=== PATIENT | male | born 1950 | race Caucasian/White ===

== ENCOUNTER 2020-08-13 12:51 | Inpatient (IN) ==
[2020-08-13 13:59] LABS: Basophils # 0.1 K/mcL (0.0-0.2); Basophils % 0.8 %; Eosinophils # 0.1 K/mcL (0.0-0.6); Eosinophils % 1.3 %; Immature Granulocytes % 0.5 % (0-4); Immature Platelets 7.7 % (1.1-6.1); Lymphocytes % 16.8 %; Mean Corpuscular HGB Conc 31.6 g/dL (31.6-35.5); Mean Corpuscular Hemoglobin 33.1 pg (28.0-33.3); Mean Corpuscular Volume 104.8 fL (83.0-100.0); Mean Platelet Volume 11.2 fL (9.4-12.4); Monocytes # 0.7 K/mcL (0.0-1.3); Monocytes % 11.1 %; Neutrophils # 4.2 K/mcL (1.6-8.9); Platelet Count 142 K/mcL (140-400); Red Blood Count 5.44 M/mcL (4.19-5.50); Red Cell Distribution Width 16.2 % (11.5-14.5); Segmented Neutrophils % 69.5 %
[2020-08-13] MEDS ORDERED: Isovue-370 500 ML BOTTLE IVP ONE (14:11)
[2020-08-13 14:27] LABS: BUN/Creatinine Ratio 16 (6-26); Blood Urea Nitrogen 12 mg/dL (8-23); Calcium 9.8 mg/dL (8.6-10.3); Carbon Dioxide 35 mEq/L (23-29); Chloride 98 mEq/L (98-107); Glucose 107 mg/dL (70-105); Osmolality,Calculated 288 (280-300); Potassium 3.5 mEq/L (3.5-5.1); Sodium 139 mEq/L (136-145); Troponin I < 0.03 ng/mL (< 0.04); eGFR For African Americans > 60 (> 60); eGFR For Non-African Americans > 60 (> 60)
[2020-08-13] MEDS ORDERED: Vancomycin 2,000 MG/520 ML IV.SOLN IVPB ONE (16:57)
[2020-08-13] MEDS ORDERED: Ondansetron ODT 4 MG TAB.RAPDIS SL PRN (17:16)
[2020-08-13] MEDS ORDERED: Acetaminophen 325 MG TABLET PO PRN (17:16)
[2020-08-13] MEDS ORDERED: Perflutren Lipid Microsphere 1.3 ML in 0.9 % Sodium Chloride 8.7 ML IVP PRN (17:20)
[2020-08-13] MEDS ORDERED: methylPREDNISolone 125 MG/2 ML VIAL IVP ONE (17:22)
[2020-08-13 18:37] LABS: VBG HCO3 39 mEq/L (21-27); VBG PCO2 80 mmHg (41-51); VBG PH 7.29 pH Units (7.32-7.42); VBG PO2 55 mmHg (25-50)
[2020-08-13 19:14] LABS: Hepatitis B Surface Antigen Nonreactive (Nonreactive)
[2020-08-13 19:36] LABS: Albumin 3.4 g/dL (3.5-5.7); Albumin/Globulin Ratio 0.7 (1.1-2.2); Bilirubin,Direct 0.3 mg/dL (0.0-0.2); Bilirubin,Indirect 1.2 mg/dL (0.0-1.0); Bilirubin,Total 1.5 mg/dL (0.3-1.0); Globulin 5.2 g/dL (2.4-3.5); Total Protein 8.6 g/dL (6.4-8.9)
[2020-08-13 19:42] LABS: Hepatitis B Core IgM Nonreactive (Nonreactive)
[2020-08-13 19:43] LABS: Hepatitis C Virus Antibody Nonreactive (Nonreactive)
[2020-08-13 19:44] LABS: Hepatitis A Antibody IgM Nonreactive (Nonreactive)
[2020-08-13 20:08] LABS: INR 1.4; Prothrombin Time 15.5 Seconds (9.4-12.1)
[2020-08-13] MEDS: Ipratropium/Albuterol Neb 3 ML IH SCH ×2 (20:14→23:22)
[2020-08-13] MEDS: Furosemide 40 MG/4 ML VIAL IVP SCH (20:18)
[2020-08-13] MEDS: Azithromycin 500 MG in 0.9 % Sodium Chloride 250 ML IVPB SCH (20:18)
[2020-08-14 03:09] LABS: Hematocrit 53.1 % (37.5-50.1); Mean Corpuscular HGB Conc 30.7 g/dL (31.6-35.5); Mean Corpuscular Hemoglobin 32.5 pg (28.0-33.3); Mean Platelet Volume 11.6 fL (9.4-12.4)
[2020-08-14 03:11] LABS: Hemoglobin 16.3 g/dL (12.9-16.9); Immature Platelets 7.5 % (1.1-6.1); Red Blood Count 5.01 M/mcL (4.19-5.50); White Blood Count 7.1 K/mcL (4.3-11.1)
[2020-08-14 03:17] LABS: BUN/Creatinine Ratio 14 (6-26); Blood Urea Nitrogen 10 mg/dL (8-23); Calcium 9.1 mg/dL (8.6-10.3); Carbon Dioxide 39 mEq/L (23-29); Chloride 98 mEq/L (98-107); Glucose 109 mg/dL (70-105); Osmolality,Calculated 292 (280-300); Potassium 3.3 mEq/L (3.5-5.1); Sodium 141 mEq/L (136-145); eGFR For African Americans > 60 (> 60); eGFR For Non-African Americans > 60 (> 60)
[2020-08-14] MEDS: Ipratropium/Albuterol Neb 3 ML IH SCH ×7 (03:51→23:47)
[2020-08-14] MEDS ORDERED: *HR* Enoxaparin 40 MG/0.4 ML SYRINGE SQ SCH (06:00)
[2020-08-14] MEDS: Furosemide 40 MG/4 ML VIAL IVP SCH ×2 (08:43→21:13)
[2020-08-14] MEDS: Metoprolol XL (24 HR) Succ 50 MG TAB.ER.24H PO SCH (09:09)
[2020-08-14] MEDS: lisinopriL 20 MG TABLET PO SCH (09:09)
[2020-08-14] MEDS: hydroCHLOROthiazide 25 MG TABLET PO SCH (09:11)
[2020-08-14 09:55] LABS: VBG HCO3 39 mEq/L (21-27); VBG PCO2 69 mmHg (41-51); VBG PH 7.36 pH Units (7.32-7.42); VBG PO2 96 mmHg (25-50)
[2020-08-14] MEDS: predniSONE 20 MG TABLET PO SCH (10:18)
[2020-08-14] MEDS: DilTIAZem CD (24hr) 120 MG CAP.ER.24H PO SCH (15:05)
[2020-08-14] MEDS: DilTIAZem 50 MG/50 ML IV.SOLN IVC SCH ×3 (16:25→23:38)
[2020-08-14] MEDS: Azithromycin 500 MG in 0.9 % Sodium Chloride 250 ML IVPB SCH (16:34)
[2020-08-14] MEDS: Fluticasone Propionate Nasal 50 MCG/SPRAY BOTTLE NS SCH (21:12)
[2020-08-14] MEDS ORDERED: Melatonin 3 MG TABLET PO PRN (23:28)
[2020-08-15] MEDS ORDERED: Albumin 25% 25gram/100mL 25 GM/100 ML IV.SOLN IVPB ONE (00:16)
[2020-08-15] MEDS: *HR* Metoprolol 5 MG/5 ML VIAL IVP PRN ×2 (01:02→11:06)
[2020-08-15] MEDS ORDERED: *HR* Metoprolol 5 MG/5 ML VIAL IVP ONE (02:16)
[2020-08-15 03:22] LABS: Basophils % 0.1 %; Eosinophils % 0.1 %; Immature Granulocytes % 0.4 % (0-4)
[2020-08-15 03:24] LABS: Hemoglobin 16.1 g/dL (12.9-16.9); Immature Platelets 7.9 % (1.1-6.1); Lymphocytes # 0.8 K/mcL (0.6-4.6); Mean Corpuscular HGB Conc 30.4 g/dL (31.6-35.5); Mean Corpuscular Volume 101.9 fL (83.0-100.0); Mean Platelet Volume 11.5 fL (9.4-12.4); Monocytes # 0.9 K/mcL (0.0-1.3); Monocytes % 12.1 %; Neutrophils # 5.6 K/mcL (1.6-8.9); Platelet Count 125 K/mcL (140-400); Red Cell Distribution Width 15.9 % (11.5-14.5); Segmented Neutrophils % 76.3 %; White Blood Count 7.3 K/mcL (4.3-11.1)
[2020-08-15] MEDS: DilTIAZem 50 MG/50 ML IV.SOLN IVC SCH ×3 (03:26→16:54)
[2020-08-15 03:35] LABS: VBG HCO3 43 mEq/L (21-27); VBG PCO2 76 mmHg (41-51); VBG PH 7.36 pH Units (7.32-7.42); VBG PO2 123 mmHg (25-50)
[2020-08-15 03:40] LABS: BUN/Creatinine Ratio 19 (6-26); Blood Urea Nitrogen 12 mg/dL (8-23); Calcium 9.2 mg/dL (8.6-10.3); Carbon Dioxide 42 mEq/L (23-29); Chloride 93 mEq/L (98-107); Glucose 124 mg/dL (70-105); Osmolality,Calculated 289 (280-300); Potassium 3.3 mEq/L (3.5-5.1); Sodium 139 mEq/L (136-145); eGFR For African Americans > 60 (> 60); eGFR For Non-African Americans > 60 (> 60)
[2020-08-15] MEDS: Ipratropium/Albuterol Neb 3 ML IH SCH ×6 (04:07→23:17)
[2020-08-15] MEDS: Metoprolol XL (24 HR) Succ 50 MG TAB.ER.24H PO SCH (07:14)
[2020-08-15] MEDS: predniSONE 20 MG TABLET PO SCH (07:15)
[2020-08-15] MEDS: DilTIAZem CD (24hr) 120 MG CAP.ER.24H PO SCH (07:15)
[2020-08-15] MEDS: lisinopriL 20 MG TABLET PO SCH (07:15)
[2020-08-15] MEDS: Fluticasone Propionate Nasal 50 MCG/SPRAY BOTTLE NS SCH (07:19)
[2020-08-15] MEDS: hydroCHLOROthiazide 25 MG TABLET PO SCH (07:30)
[2020-08-15] MEDS: Furosemide 40 MG/4 ML VIAL IVP SCH ×2 (07:44→22:18)
[2020-08-15] MEDS: Vancomycin 2,000 MG/520 ML IV.SOLN IVPB SCH (10:35)
[2020-08-15] MEDS ORDERED: Amiodarone Premix 150 MG/100 ML BAG IVPB ONE (17:05)
[2020-08-15] MEDS ORDERED: Amiodarone Premix 360 MG/200 ML BAG IVC ONE (17:05)
[2020-08-15] MEDS ORDERED: Amiodarone Premix 360 MG/200 ML BAG IVC SCH (17:15)
[2020-08-15] MEDS: *HR* Rivaroxaban 10 MG TABLET PO SCH (18:01)
[2020-08-15] MEDS: Azithromycin 500 MG in 0.9 % Sodium Chloride 250 ML IVPB SCH (18:01)
[2020-08-15 22:54] LABS: ABG Base Excess 13 mEq/L (-2 to 3); ABG HCO3 44 mEq/L (21-27); ABG Oxygen Saturation 94 % (95-98); ABG PCO2 79 mmHg (35-45); ABG PH 7.36 pH Units (7.32-7.45); ABG PO2 80 mmHg (85-104); ABG TCO2 47 mEq/L (20-26)
[2020-08-16] MEDS: Vancomycin 2,000 MG/520 ML IV.SOLN IVPB SCH ×2 (00:16→09:48)
[2020-08-16 03:14] LABS: Basophils % 0.2 %; Hematocrit 53.8 % (37.5-50.1); Hemoglobin 16.3 g/dL (12.9-16.9); Immature Granulocytes % 0.5 % (0-4); Immature Platelets 10.4 % (1.1-6.1); Lymphocytes # 1.1 K/mcL (0.6-4.6); Lymphocytes % 11.1 %; Mean Corpuscular HGB Conc 30.3 g/dL (31.6-35.5); Mean Corpuscular Hemoglobin 30.8 pg (28.0-33.3); Mean Corpuscular Volume 101.7 fL (83.0-100.0); Mean Platelet Volume 11.5 fL (9.4-12.4); Monocytes # 1.2 K/mcL (0.0-1.3); Monocytes % 12.6 %; Neutrophils # 7.2 K/mcL (1.6-8.9); Platelet Count 127 K/mcL (140-400); Red Blood Count 5.29 M/mcL (4.19-5.50); Red Cell Distribution Width 15.7 % (11.5-14.5); Segmented Neutrophils % 75.6 %; White Blood Count 9.6 K/mcL (4.3-11.1)
[2020-08-16 03:28] LABS: BUN/Creatinine Ratio 21 (6-26); Blood Urea Nitrogen 15 mg/dL (8-23); Calcium 9.3 mg/dL (8.6-10.3); Carbon Dioxide 40 mEq/L (23-29); Chloride 93 mEq/L (98-107); Glucose 109 mg/dL (70-105); Magnesium 1.7 mg/dL (1.6-2.6); Osmolality,Calculated 285 (280-300); Potassium 3.7 mEq/L (3.5-5.1); Sodium 137 mEq/L (136-145); eGFR For African Americans > 60 (> 60); eGFR For Non-African Americans > 60 (> 60)
[2020-08-16] MEDS: Ipratropium/Albuterol Neb 3 ML IH SCH ×5 (04:16→19:49)
[2020-08-16] MEDS: Metoprolol XL (24 HR) Succ 50 MG TAB.ER.24H PO SCH (07:26)
[2020-08-16] MEDS: Furosemide 40 MG/4 ML VIAL IVP SCH ×2 (07:26→19:30)
[2020-08-16] MEDS: Fluticasone Propionate Nasal 50 MCG/SPRAY BOTTLE NS SCH (07:27)
[2020-08-16] MEDS: predniSONE 20 MG TABLET PO SCH (07:27)
[2020-08-16] MEDS ORDERED: DilTIAZem CD (24hr) 180 MG CAP.ER.24H PO SCH (09:00)
[2020-08-16] MEDS: Doxycycline 100 MG CAPSULE PO SCH ×2 (12:45→19:30)
[2020-08-16] MEDS: *HR* Rivaroxaban 10 MG TABLET PO SCH (16:07)
[2020-08-17] MEDS: Ipratropium/Albuterol Neb 3 ML IH SCH ×7 (00:06→23:46)
[2020-08-17 06:14] LABS: Basophils % 0.3 %; Eosinophils % 0.3 %; Hematocrit 54.3 % (37.5-50.1); Hemoglobin 17.2 g/dL (12.9-16.9); Immature Granulocytes % 0.3 % (0-4); Lymphocytes # 1.3 K/mcL (0.6-4.6); Lymphocytes % 18.7 %; Mean Corpuscular HGB Conc 31.7 g/dL (31.6-35.5); Mean Corpuscular Hemoglobin 32.4 pg (28.0-33.3); Mean Corpuscular Volume 102.3 fL (83.0-100.0); Mean Platelet Volume 11.4 fL (9.4-12.4); Monocytes # 0.8 K/mcL (0.0-1.3); Monocytes % 11.9 %; Neutrophils # 4.8 K/mcL (1.6-8.9); Platelet Count 128 K/mcL (140-400); Red Blood Count 5.31 M/mcL (4.19-5.50); Red Cell Distribution Width 15.6 % (11.5-14.5); Segmented Neutrophils % 68.5 %
[2020-08-17 06:20] LABS: VBG HCO3 40 mEq/L (21-27); VBG PCO2 71 mmHg (41-51); VBG PH 7.36 pH Units (7.32-7.42); VBG PO2 167 mmHg (25-50)
[2020-08-17 07:00] LABS: BUN/Creatinine Ratio 28 (6-26); Blood Urea Nitrogen 19 mg/dL (8-23); Calcium 9.3 mg/dL (8.6-10.3); Carbon Dioxide 40 mEq/L (23-29); Chloride 93 mEq/L (98-107); Glucose 90 mg/dL (70-105); Osmolality,Calculated 286 (280-300); Potassium 3.4 mEq/L (3.5-5.1); Sodium 137 mEq/L (136-145); eGFR For African Americans > 60 (> 60); eGFR For Non-African Americans > 60 (> 60)
[2020-08-17] MEDS: Doxycycline 100 MG CAPSULE PO SCH ×2 (09:35→19:13)
[2020-08-17] MEDS: Fluticasone Propionate Nasal 50 MCG/SPRAY BOTTLE NS SCH (09:36)
[2020-08-17] MEDS: Furosemide 40 MG/4 ML VIAL IVP SCH ×2 (09:37→19:12)
[2020-08-17] MEDS: Metoprolol XL (24 HR) Succ 50 MG TAB.ER.24H PO SCH (09:40)
[2020-08-17] MEDS: Sennosides/Docusate Sodium TABLET PO SCH (09:40)
[2020-08-17] MEDS: predniSONE 20 MG TABLET PO SCH (09:41)
[2020-08-17] MEDS: *HR* Rivaroxaban 10 MG TABLET PO SCH (16:49)
[2020-08-18 03:47] LABS: Red Cell Distribution Width 15.5 % (11.5-14.5)
[2020-08-18 03:49] LABS: Basophils % 0.3 %; Hematocrit 55.3 % (37.5-50.1); Hemoglobin 16.9 g/dL (12.9-16.9); Immature Granulocytes % 0.4 % (0-4); Immature Platelets 9.5 % (1.1-6.1); Lymphocytes % 14.7 %; Mean Corpuscular HGB Conc 30.6 g/dL (31.6-35.5); Mean Corpuscular Hemoglobin 31.1 pg (28.0-33.3); Mean Corpuscular Volume 101.7 fL (83.0-100.0); Mean Platelet Volume 11.7 fL (9.4-12.4); Monocytes # 0.9 K/mcL (0.0-1.3); Monocytes % 12.8 %; Neutrophils # 4.8 K/mcL (1.6-8.9); Platelet Count 125 K/mcL (140-400); Red Blood Count 5.44 M/mcL (4.19-5.50); Segmented Neutrophils % 71.8 %; White Blood Count 6.7 K/mcL (4.3-11.1)
[2020-08-18 03:51] LABS: VBG HCO3 40 mEq/L (21-27); VBG PCO2 48 mmHg (41-51); VBG PH 7.53 pH Units (7.32-7.42); VBG PO2 195 mmHg (25-50)
[2020-08-18] MEDS: Ipratropium/Albuterol Neb 3 ML IH SCH ×6 (03:58→23:40)
[2020-08-18 04:09] LABS: BUN/Creatinine Ratio 30 (6-26); Blood Urea Nitrogen 23 mg/dL (8-23); Calcium 9.5 mg/dL (8.6-10.3); Carbon Dioxide 41 mEq/L (23-29); Chloride 94 mEq/L (98-107); Glucose 92 mg/dL (70-105); Osmolality,Calculated 293 (280-300); Potassium 3.9 mEq/L (3.5-5.1); Sodium 140 mEq/L (136-145); eGFR For African Americans > 60 (> 60); eGFR For Non-African Americans > 60 (> 60)
[2020-08-18] MEDS: predniSONE 20 MG TABLET PO SCH (07:35)
[2020-08-18] MEDS: Metoprolol XL (24 HR) Succ 50 MG TAB.ER.24H PO SCH (07:36)
[2020-08-18] MEDS: Sennosides/Docusate Sodium TABLET PO SCH (07:36)
[2020-08-18] MEDS: Doxycycline 100 MG CAPSULE PO SCH ×2 (07:36→21:17)
[2020-08-18] MEDS: lisinopriL 20 MG TABLET PO SCH (07:36)
[2020-08-18] MEDS: hydroCHLOROthiazide 25 MG TABLET PO SCH (07:36)
[2020-08-18] MEDS: Furosemide 40 MG/4 ML VIAL IVP SCH (07:36)
[2020-08-18] MEDS: Fluticasone Propionate Nasal 50 MCG/SPRAY BOTTLE NS SCH (07:37)
[2020-08-18] MEDS: *HR* Rivaroxaban 10 MG TABLET PO SCH (16:32)
[2020-08-19] MEDS: Ipratropium/Albuterol Neb 3 ML IH SCH ×6 (03:38→23:06)
[2020-08-19 07:03] LABS: Basophils % 0.3 %; Eosinophils % 0.6 %; Hemoglobin 17.6 g/dL (12.9-16.9); Immature Granulocytes % 0.3 % (0-4); Lymphocytes # 1.4 K/mcL (0.6-4.6); Lymphocytes % 21.7 %; Mean Corpuscular HGB Conc 31.6 g/dL (31.6-35.5); Mean Corpuscular Hemoglobin 32.1 pg (28.0-33.3); Mean Corpuscular Volume 101.5 fL (83.0-100.0); Mean Platelet Volume 12.1 fL (9.4-12.4); Monocytes # 0.9 K/mcL (0.0-1.3); Monocytes % 13.5 %; Platelet Count 124 K/mcL (140-400); Red Blood Count 5.49 M/mcL (4.19-5.50); Red Cell Distribution Width 15.3 % (11.5-14.5); Segmented Neutrophils % 63.6 %; White Blood Count 6.4 K/mcL (4.3-11.1)
[2020-08-19 07:04] LABS: Hematocrit 55.7 % (37.5-50.1)
[2020-08-19 07:16] LABS: VBG HCO3 41 mEq/L (21-27); VBG PCO2 68 mmHg (41-51); VBG PH 7.39 pH Units (7.32-7.42); VBG PO2 185 mmHg (25-50)
[2020-08-19 07:22] LABS: BUN/Creatinine Ratio 36 (6-26); Blood Urea Nitrogen 27 mg/dL (8-23); Calcium 9.8 mg/dL (8.6-10.3); Carbon Dioxide 41 mEq/L (23-29); Chloride 92 mEq/L (98-107); Glucose 84 mg/dL (70-105); Osmolality,Calculated 290 (280-300); Potassium 3.5 mEq/L (3.5-5.1); Sodium 138 mEq/L (136-145); eGFR For African Americans > 60 (> 60); eGFR For Non-African Americans > 60 (> 60)
[2020-08-19] MEDS: hydroCHLOROthiazide 25 MG TABLET PO SCH (08:44)
[2020-08-19] MEDS: predniSONE 20 MG TABLET PO SCH (08:44)
[2020-08-19] MEDS: Metoprolol XL (24 HR) Succ 50 MG TAB.ER.24H PO SCH (08:44)
[2020-08-19] MEDS: Doxycycline 100 MG CAPSULE PO SCH ×2 (08:44→21:30)
[2020-08-19] MEDS: lisinopriL 20 MG TABLET PO SCH (08:44)
[2020-08-19] MEDS: Sennosides/Docusate Sodium TABLET PO SCH (08:44)
[2020-08-19] MEDS: Fluticasone Propionate Nasal 50 MCG/SPRAY BOTTLE NS SCH (08:45)
[2020-08-19 16:17] LABS: INR 1.8; Prothrombin Time 20.9 Seconds (9.4-12.1)
[2020-08-19] MEDS: Furosemide 40 MG/4 ML VIAL IVP SCH (16:35)
[2020-08-19] MEDS: *HR* Rivaroxaban 10 MG TABLET PO SCH (16:44)
[2020-08-19 22:53] LABS: Magnesium 1.9 mg/dL (1.6-2.6); Potassium 3.4 mEq/L (3.5-5.1)
[2020-08-20] MEDS: Ipratropium/Albuterol Neb 3 ML IH SCH ×5 (03:34→20:17)
[2020-08-20 06:58] LABS: Basophils % 0.3 %; Eosinophils % 0.5 %; Hemoglobin 17.9 g/dL (12.9-16.9); Immature Granulocytes % 0.4 % (0-4); Lymphocytes # 1.6 K/mcL (0.6-4.6); Lymphocytes % 20.8 %; Mean Corpuscular HGB Conc 31.7 g/dL (31.6-35.5); Mean Corpuscular Hemoglobin 31.3 pg (28.0-33.3); Mean Corpuscular Volume 98.8 fL (83.0-100.0); Mean Platelet Volume 12.3 fL (9.4-12.4); Monocytes # 0.9 K/mcL (0.0-1.3); Monocytes % 12.1 %; Neutrophils # 5.1 K/mcL (1.6-8.9); Platelet Count 134 K/mcL (140-400); Red Blood Count 5.72 M/mcL (4.19-5.50); Red Cell Distribution Width 15.2 % (11.5-14.5); Segmented Neutrophils % 65.9 %; White Blood Count 7.8 K/mcL (4.3-11.1)
[2020-08-20 06:59] LABS: Hematocrit 56.5 % (37.5-50.1)
[2020-08-20] MEDS ORDERED: predniSONE 20 MG TABLET PO SCH (09:00)
[2020-08-20 09:01] LABS: BUN/Creatinine Ratio 35 (6-26); Blood Urea Nitrogen 29 mg/dL (8-23); Calcium 10.1 mg/dL (8.6-10.3); Carbon Dioxide 41 mEq/L (23-29); Chloride 91 mEq/L (98-107); Glucose 86 mg/dL (70-105); Osmolality,Calculated 285 (280-300); Potassium 3.7 mEq/L (3.5-5.1); Sodium 135 mEq/L (136-145); eGFR For African Americans > 60 (> 60); eGFR For Non-African Americans > 60 (> 60)
[2020-08-20] MEDS: Sennosides/Docusate Sodium TABLET PO SCH (10:06)
[2020-08-20] MEDS: hydroCHLOROthiazide 25 MG TABLET PO SCH (10:06)
[2020-08-20] MEDS: Doxycycline 100 MG CAPSULE PO SCH (10:07)
[2020-08-20] MEDS: Metoprolol XL (24 HR) Succ 50 MG TAB.ER.24H PO SCH (10:07)
[2020-08-20] MEDS: lisinopriL 20 MG TABLET PO SCH (10:07)
[2020-08-20] MEDS: predniSONE 20 MG TABLET PO SCH (10:07)
[2020-08-20] MEDS: Fluticasone Propionate Nasal 50 MCG/SPRAY BOTTLE NS SCH (10:08)
[2020-08-20 11:15] LABS: VBG HCO3 46 mEq/L (21-27); VBG PCO2 84 mmHg (41-51); VBG PH 7.35 pH Units (7.32-7.42); VBG PO2 91 mmHg (25-50)
[2020-08-20 12:03] LABS: ABG Base Excess 16 mEq/L (-2 to 3); ABG HCO3 47 mEq/L (21-27); ABG Oxygen Saturation 89 % (95-98); ABG PCO2 71 mmHg (35-45); ABG PH 7.43 pH Units (7.32-7.45); ABG PO2 59 mmHg (85-104); ABG TCO2 49 mEq/L (20-26)
[2020-08-20] MEDS: Furosemide 40 MG/4 ML VIAL IVP SCH (13:16)
[2020-08-20 15:24] LABS: INR 1.7; Prothrombin Time 19.7 Seconds (9.4-12.1)
[2020-08-20 15:34] LABS: Albumin 3.9 g/dL (3.5-5.7); Bilirubin,Total 2.2 mg/dL (0.3-1.0)
[2020-08-20] MEDS: *HR* Rivaroxaban 10 MG TABLET PO SCH (16:17)
[2020-08-20] MEDS: *HR* Metoprolol 5 MG/5 ML VIAL IVP PRN (18:24)
[2020-08-20] MEDS ORDERED: *HR* Metoprolol 5 MG/5 ML VIAL IVP ONE (19:07)
[2020-08-21] MEDS: Ipratropium/Albuterol Neb 3 ML IH SCH ×4 (00:04→11:18)
[2020-08-21] MEDS: *HR* Metoprolol 5 MG/5 ML VIAL IVP PRN ×2 (00:36→06:40)
[2020-08-21 04:39] LABS: ABG Base Excess 13 mEq/L (-2 to 3); ABG HCO3 43 mEq/L (21-27); ABG Oxygen Saturation 91 % (95-98); ABG PCO2 69 mmHg (35-45); ABG PO2 65 mmHg (85-104); ABG TCO2 45 mEq/L (20-26)
[2020-08-21 05:22] LABS: Basophils % 0.1 %; Hemoglobin 17.6 g/dL (12.9-16.9); Immature Granulocytes % 0.4 % (0-4); Lymphocytes # 1.1 K/mcL (0.6-4.6); Lymphocytes % 14.1 %; Mean Corpuscular HGB Conc 31.6 g/dL (31.6-35.5); Mean Corpuscular Hemoglobin 31.2 pg (28.0-33.3); Mean Corpuscular Volume 98.6 fL (83.0-100.0); Mean Platelet Volume 12.3 fL (9.4-12.4); Monocytes # 0.9 K/mcL (0.0-1.3); Monocytes % 11.2 %; Platelet Count 136 K/mcL (140-400); Red Blood Count 5.65 M/mcL (4.19-5.50); Red Cell Distribution Width 14.8 % (11.5-14.5); Segmented Neutrophils % 74.2 %; White Blood Count 8.1 K/mcL (4.3-11.1)
[2020-08-21 05:30] LABS: Hematocrit 55.7 % (37.5-50.1)
[2020-08-21 05:46] LABS: BUN/Creatinine Ratio 36 (6-26); Blood Urea Nitrogen 33 mg/dL (8-23); Calcium 10.2 mg/dL (8.6-10.3); Carbon Dioxide 43 mEq/L (23-29); Chloride 91 mEq/L (98-107); Glucose 105 mg/dL (70-105); Osmolality,Calculated 294 (280-300); Potassium 3.7 mEq/L (3.5-5.1); Sodium 138 mEq/L (136-145); eGFR For African Americans > 60 (> 60); eGFR For Non-African Americans > 60 (> 60)
[2020-08-21] MEDS ORDERED: acetaZOLAMIDE 250 MG TABLET PO ONE (07:26)
[2020-08-21] MEDS: hydroCHLOROthiazide 25 MG TABLET PO SCH (08:54)
[2020-08-21] MEDS: lisinopriL 20 MG TABLET PO SCH (08:54)
[2020-08-21] MEDS: Sennosides/Docusate Sodium TABLET PO SCH (08:54)
[2020-08-21] MEDS: predniSONE 20 MG TABLET PO SCH (08:54)
[2020-08-21] MEDS: Metoprolol XL (24 HR) Succ 50 MG TAB.ER.24H PO SCH (08:54)
[2020-08-21] MEDS: Fluticasone Propionate Nasal 50 MCG/SPRAY BOTTLE NS SCH (08:55)
[2020-08-21 11:22] VITALS: BP 111/74
[2020-08-21] MEDS ORDERED: FLU Vac QV 20-21 (6Month+)/PF 0.5 ML SYRINGE IM ONE (12:37)
[2020-08-21] MEDS: Furosemide 40 MG/4 ML VIAL IVP SCH (13:15)
== END 2020-08-21 14:10 | disposition home health service (06) | DRG 291 ==
LOC: EMEROOARM 12:51 → 2ANU 12:51 → 2NNU 08-15 17:31 → 3ANU 08-20 14:36
PROVIDERS: ADMIT Family Medicine; ATTEND Family Medicine